=== PATIENT | female | born 1960 | race Asian ===

== ENCOUNTER 2018-01-31 11:11 | Emergency (ER) | payer OTHER ==
[~2018-01-31] VITALS: Ht 154.9 cm; Wt 56.2 kg
[2018-01-31 11:15] VITALS: Ht 154.9 cm; Wt 56.2 kg
[2018-01-31 12:33] LABS: BASOPHIL % 0.5 % (0-2); PLATELET COUNT 193 x10^3mcL (130-400); RED CELL DISTRIBUTION WIDTH 13.3 % (11.5-14.5)
[2018-01-31 12:48] LABS: CALCIUM 9.4 mg/dL (8.5-10.1); CARBON DIOXIDE 30.9 mmol/L (21-32); CHLORIDE SERUM 100 mmol/L (98-107); CREATININE SERUM 0.8 mg/dL (0.6-1.0); GFR1 > 60 mL/min; GLUCOSE SERUM 142 mg/dL (74-106); POTASSIUM SERUM 4.5 mmol/L (3.5-5.1); SODIUM SERUM 135 mmol/L (136-145)
[2018-01-31 12:54] LABS: ALKALINE PHOSPHATASE 100 U/L (46-116); ALT/SGPT 44 U/L (14-59); AST/SGOT 25 U/L (15-37); BILIRUBIN TOTAL 0.8 mg/dL (0.20-1.00); LIPASE 133 IU/L (73-393)
[2018-01-31 12:57] LABS: ALBUMIN 3.3 g/dL (3.4-5.0); AMYLASE 682 U/L (25-115); TOTAL PROTEIN, SERUM 8.5 g/dL (6.4-8.2)
[2018-01-31 13:27] VITALS: BP 117/76
== END 2018-01-31 14:24 | disposition home or self-care (01) ==
LOC: ED 11:11
PROVIDERS: Emergency Medicine
DX: R10.11 Right upper quadrant pain (principal); R11.0 Nausea; R50.9 Fever, unspecified
CPT/HCPCS: 36415; 83880; J1885; Q0092